=== PATIENT | male | born 1960 | race Caucasian/White ===

== ENCOUNTER 2021-10-15 09:58 | Inpatient (IN) | payer MEDICAID, OTHER ==
[~2021-10-15] VITALS: Ht 167.6 cm; Wt 66.0 kg
[2021-10-15] MEDS ORDERED: IBUP-2028 MT (12:17)
[2021-10-15] MEDS ORDERED: MORPHINE SULFATE 4 MG/ML CPJ (NOT FOR IM USE) IV STA (13:02)
[2021-10-15] MEDS ORDERED: ONDANSETRON HCL 4MG/2ML INJ IV STA (13:02)
[2021-10-15] MEDS ORDERED: SODIUM CHLORIDE 0.9% 1,000 ML IV ONE (13:15)
[2021-10-15] MEDS ORDERED: MORPHINE SULFATE 4 MG/ML CPJ (NOT FOR IM USE) IV NR (15:15)
[2021-10-15] MEDS ORDERED: ONDANSETRON HCL 4MG/2ML INJ IV NR (15:15)
[2021-10-15 16:18] LABS: HEMATOCRIT. 42.1 % (42.0-52.0); HEMOGLOBIN. 13.6 g/dL (14.0-18.0); MEAN CORPUSCULAR VOLUME 83.6 fL (80.0-94.0); MEAN PLATELET VOLUME 8.4 fl (7.4-10.4); PLATELET 267 x1000/uL (130-400); RED BLOOD CELL COUNT 5.04 mill/uL (4.7-6.1); RED CELL DISTRIBUTION WIDTH 14.6 % (11.6-14.6)
[2021-10-15 16:24] LABS: CHLORIDE 105 mEq/L (98-107)
[2021-10-15 17:12] LABS: PLATELET ESTIMATE NORMAL
[2021-10-15 17:43] LABS: CHLORIDE 104 mEq/L (98-107)
[2021-10-15] MEDS ORDERED: AMLODIPINE 10MG TABLET PO ONE (18:15)
[2021-10-15] MEDS ORDERED: IOHEXOL-300 100 ML BOTTLE ONE (19:52)
[2021-10-15 20:00] VITALS: BP 170/93
[2021-10-15 22:40] VITALS: BP 170/93
[2021-10-16] VITALS: BP 180/97
[2021-10-16] MEDS: HYDROCODONE/ACETAMINOPHEN 10/325MG TABLET PO PRN ×2 (01:29→21:28)
[2021-10-16 04:00] VITALS: BP 151/87
[2021-10-16 06:33] LABS: HEMOGLOBIN. 13.3 g/dL (14.0-18.0); MEAN CORPUSCULAR HEMOGLOBIN 27.4 pg (28.0-32.0); MEAN CORPUSCULAR VOLUME 82.5 fL (80.0-94.0); PLATELET 256 x1000/uL (130-400); RED BLOOD CELL COUNT 4.85 mill/uL (4.7-6.1)
[2021-10-16 08:00] VITALS: BP 129/69
[2021-10-16] MEDS: LISINOPRIL 20MG TABLET PO SCH (09:16)
[2021-10-16] MEDS: AMLODIPINE 10MG TABLET PO SCH (09:19)
[2021-10-16] MEDS: ENOXAPARIN 40MG/0.4ML SYR SUBCUT SCH (09:19)
[2021-10-16 12:00] VITALS: BP 141/84
[2021-10-16 15:27] LABS: CLARITY URINE CLEAR (CLEAR); COLOR URINE DARK YELLOW (YELLOW); KETONES URINE 1+ (NEGATIVE); LEUKOCYTE ESTERASE URINE NEGATIVE (NEGATIVE); NITRITE URINE NEGATIVE (NEGATIVE); OCCULT BLOOD URINE NEGATIVE (NEGATIVE); PH URINE 5.5 (4.5-8.0); PROTEIN URINE 1+ (NEGATIVE); SPECIFIC GRAVITY URINE 1.032 (1.005-1.030)
[2021-10-16 16:00] VITALS: BP 105/59
[2021-10-16 19:37] LABS: PLATELET ESTIMATE NORMAL
[2021-10-16 20:00] VITALS: BP 103/58
[2021-10-17] VITALS: BP 108/66
[2021-10-17 04:00] VITALS: BP 146/78
[2021-10-17 08:00] VITALS: BP 112/66
[2021-10-17] MEDS: LISINOPRIL 20MG TABLET PO SCH (09:00)
[2021-10-17] MEDS: AMLODIPINE 10MG TABLET PO SCH (09:00)
[2021-10-17] MEDS: ENOXAPARIN 40MG/0.4ML SYR SUBCUT SCH (09:34)
[2021-10-17] MEDS: HYDROCODONE/ACETAMINOPHEN 10/325MG TABLET PO PRN (09:59)
[2021-10-17] MEDS ORDERED: LOSA100T32 MT (12:20)
[2021-10-17] MEDS ORDERED: HYDR-4001 MT (12:20)
[2021-10-17 12:42] VITALS: BP 112/66
== END 2021-10-17 13:57 | disposition home or self-care (01) | DRG 351 ==
LOC: ER 09:58 → 6EST 18:02 → EDBEDREQTM 18:16 → EDBEDREQ 18:16 → EDBEDREQSVC 18:16 → ENRESERV 19:01
PROVIDERS: ADMIT Internal Medicine; ATTEND Internal Medicine
DX: M25.461 Effusion, right knee (principal); R65.10 Systemic inflammatory response syndrome (SIRS) of non-infectious origin without acute organ dysfunction; E44.0 Moderate protein-calorie malnutrition; E83.51 Hypocalcemia; D72.829 Elevated white blood cell count, unspecified; I10 Essential (primary) hypertension; V28.4XXA Motorcycle driver injured in noncollision transport accident in traffic accident, initial encounter; Y93.89 Activity, other specified; Y92.488 Other paved roadways as the place of occurrence of the external cause; Y99.8 Other external cause status; Z68.23 Body mass index [BMI] 23.0-23.9, adult
CPT/HCPCS: 36415; 71045; 71260; 72192; 73030; 73560; 73590; 73610; 73620; 73700; 74177; 80048; 80053; 81003; 85025; 93005; 97161; 99285; J1650; J2270; J2405; J7030; Q9967

== ENCOUNTER 2022-06-05 11:18 | Emergency (ER) | payer MEDICAID, OTHER ==
[~2022-06-05] VITALS: Ht 177.8 cm; Wt 64.0 kg
[~2022-06-05 11:18] MED LIST: HYDR-4001 MT; IBUP-2028 MT; LOSA100T32 MT
[2022-06-05 12:22] VITALS: BP 131/75
== END 2022-06-05 14:56 | disposition left against medical advice (07) ==
LOC: ER 11:18
DX: Z53.21 Procedure and treatment not carried out due to patient leaving prior to being seen by health care provider (principal)
CPT/HCPCS: 99281

== ENCOUNTER 2024-06-16 17:06 | Emergency (ER) | payer MEDICAID, OTHER ==
[~2024-06-16] VITALS: Ht 177.8 cm; Wt 68.0 kg
[~2024-06-16 17:06] MED LIST changes: -LOSA100T32 MT; +LOSA100T33 MT
[2024-06-16 17:10] VITALS: BP 160/85; TEMP 36.7; O2SAT 98
[2024-06-16 17:13] VITALS: PULSE 76; RESP 18; O2SAT 98
[2024-06-16 18:40] LABS: BASOPHILS % 0.9 % (0.0-2.0); EOSINOPHILS % 5.2 % (0.0-5.0); HEMATOCRIT. 39.6 % (42.0-52.0); HEMOGLOBIN. 12.9 g/dL (14.0-18.0); LYMPHOCYTES % 15.9 % (20.0-50.0); MEAN CORPUSCULAR HEMOGLOBIN 26.9 pg (28.0-32.0); MEAN CORPUSCULAR HGB CONC 32.6 g/dL (31.0-37.0); MEAN CORPUSCULAR VOLUME 82.3 fL (80.0-94.0); MONOCYTES % 14.5 % (2.0-8.0); NEUTROPHILS % 63.5 % (40.0-76.0); PLATELET 406 x1000/uL (130-400); RED CELL DISTRIBUTION WIDTH 14.7 % (11.6-14.6)
[2024-06-16 18:50] LABS: CHLORIDE 104 mEq/L (98-107); POTASSIUM 3.9 mEq/L (3.5-5.1); PROTHROMBIN TIME 10.5 sec (9.6-11.0); SODIUM 140 mEq/L (136-145)
[2024-06-16 18:51] LABS: CARBON DIOXIDE 29 mEq/L (21-32)
[2024-06-16 18:52] LABS: CALCIUM 9.4 mg/dL (8.7-10.4)
[2024-06-16 18:56] LABS: CREATININE 1.5 mg/dL (0.6-1.3)
[2024-06-16 18:57] LABS: GLUCOSE 105 mg/dL (70-105); UREA NITROGEN BLOOD 36 mg/dL (9-23)
[2024-06-16 18:58] LABS: TROPONIN I HIGH SENSITIVITY 16 ng/L (3.0-53)
[2024-06-16 18:59] LABS: ETHANOL BLOOD < 10 mg/dL (<10)
[2024-06-16] MEDS: ASPIRIN 81MG TABLET PO ONE (19:52)
== END 2024-06-16 22:21 | disposition left against medical advice (07) ==
LOC: ER 17:06
DX: I63.9 Cerebral infarction, unspecified (principal); Z96.659 Presence of unspecified artificial knee joint; Z79.899 Other long term (current) drug therapy; Z98.890 Other specified postprocedural states
CPT/HCPCS: 80048; 80320; 85025; 85610; 84484; 36415; 71045; 70450; 99284; Z7610; G0480

== ENCOUNTER 2024-10-12 23:58 | Emergency (ER) | payer MEDICAID ==
[~2024-10-12] VITALS: Ht 172.7 cm; Wt 76.0 kg
[~2024-10-12 23:58] MED LIST changes: +AMLO5TAB88 PO; +ASPI-1497 MT; +ATOR40TA70 MT; +CEFD300C3 MT; +CLOP-31 MT; -HYDR-4001 MT; -IBUP-2028 MT
[2024-10-13 00:01] VITALS: O2SAT 96
[2024-10-13 02:07] LABS: BASOPHILS % 0.7 % (0.0-2.0); EOSINOPHILS % 1.7 % (0.0-5.0); HEMATOCRIT. 37.7 % (42.0-52.0); HEMOGLOBIN. 12.6 g/dL (14.0-18.0); LYMPHOCYTES % 10.6 % (20.0-50.0); MEAN PLATELET VOLUME 8.8 fl (7.4-10.4); MONOCYTES % 12.8 % (2.0-8.0); NEUTROPHILS % 74.2 % (40.0-76.0); PLATELET 348 x1000/uL (130-400); RED BLOOD CELL COUNT 4.59 mill/uL (4.7-6.1); RED CELL DISTRIBUTION WIDTH 16.2 % (11.6-14.6)
[2024-10-13 02:11] LABS: CLARITY URINE CLEAR (CLEAR); COLOR URINE YELLOW (YELLOW); GLUCOSE URINE NEGATIVE (NEGATIVE); KETONES URINE NEGATIVE (NEGATIVE); LEUKOCYTE ESTERASE URINE NEGATIVE (NEGATIVE); NITRITE URINE NEGATIVE (NEGATIVE); OCCULT BLOOD URINE NEGATIVE (NEGATIVE); PH URINE 6.0 (4.5-8.0); PROTEIN URINE TRACE (NEGATIVE); SPECIFIC GRAVITY URINE 1.019 (1.005-1.030); UROBILINOGEN URINE 0.2 E.U./dL (0.2-1.0)
[2024-10-13 02:18] LABS: *AMPHETAMINES SCREEN URINE PRESUMPTIVE POSITIVE (NEGATIVE)
[2024-10-13 02:19] LABS: *BARBITURATES SCREEN URINE NEGATIVE (NEGATIVE); *BENZODIAZEPINES SCREEN URINE NEGATIVE (NEGATIVE); *COCAINE SCREEN URINE NEGATIVE (NEGATIVE); CANNABINOID URINE SCREEN NEGATIVE (NEGATIVE); CREATININE 1.6 mg/dL (0.6-1.3); ECSTASY MDMA SCREEN URINE NEGATIVE (NEGATIVE); METHADONE URINE SCREEN NEGATIVE (NEGATIVE); OPIATES URINE SCREEN NEGATIVE (NEGATIVE); PHENCYCLIDINE URINE SCREEN NEGATIVE (NEGATIVE)
[2024-10-13 02:20] LABS: ETHANOL BLOOD < 10 mg/dL (<10); UREA NITROGEN BLOOD 32 mg/dL (9-23)
[2024-10-13 02:21] LABS: ASPARTATE AMINOTRANSFERASE 20 IU/L (<34)
[2024-10-13 02:22] LABS: BILIRUBIN DIRECT 0.1 mg/dL (<=3.0); BILIRUBIN TOTAL 0.3 mg/dL (0.1-1.0); PROTEIN TOTAL 6.6 g/dL (6.0-8.3)
[2024-10-13] MEDS: CLOPIDOGREL 75MG TABLET PO SCH (09:00)
[2024-10-13] MEDS: ASPIRIN 81MG TABLET PO SCH (10:00)
[2024-10-13] MEDS: LOSARTAN 100 MG TABLET PO SCH (10:00)
[2024-10-13] MEDS: AMLODIPINE 5MG TABLET PO SCH (10:01)
[2024-10-13] MEDS ORDERED: CLONIDINE 0.2MG TABLET PO ONE (14:15)
[2024-10-13] MEDS: CLONIDINE 0.1MG TABLET PO SCH (14:24)
[2024-10-13 21:00] VITALS: BP 165/83; PULSE 65; RESP 16; TEMP 36.9; O2SAT 98
[2024-10-13] MEDS ORDERED: ATORVASTATIN CALCIUM 40MG TABLET PO SCH (21:00)
== END 2024-10-13 22:01 ==
LOC: ER 23:58
DX: R45.851 Suicidal ideations (principal); I10 Essential (primary) hypertension; F15.10 Other stimulant abuse, uncomplicated; R54 Age-related physical debility; Z79.02 Long term (current) use of antithrombotics/antiplatelets; Z79.82 Long term (current) use of aspirin; Z79.899 Other long term (current) drug therapy; Z86.73 Personal history of transient ischemic attack (TIA), and cerebral infarction without residual deficits; Z96.659 Presence of unspecified artificial knee joint; Z20.822 Contact with and (suspected) exposure to COVID-19
CPT/HCPCS: 99285; 80076; 80305; 80048; 81003; 80307; 80329; 80320; 85025; 36415; 87426; Z7610 ×2; G0480